=== PATIENT | female | born 1955 | race Caucasian/White ===

== ENCOUNTER 2016-09-23 03:51 | Emergency (ER) | payer OTHER ==
--- NOTE | ~2016-09-23 | ER ---
PATIENT'S NAME: AMARILIS [facility] AGE: 61 Y [address] ROOM: [place] [address] LOCATION: [facility] ADMIT DATE: 09/23/2016 ER/Outpatient Report DISCHARGE DATE: 09/23/2016 FAMILY PHYSICIAN: PHYSICIAN, NO ATTENDING PHYSICIAN: Estefany Richey HISTORY OF PRESENT ILLNESS: A 61-year-old female who presents today with syncopal episode about 30 minutes ago and sustaining a right-sided forehead laceration. The patient states that she had severe abdominal pain, which is consistent with IBS flares and then got into a cold sweat and then blacked out and then had a lot of diarrhea. This happened 30 minutes ago. She has no symptoms at this time. She denies any abdominal pain. No chest pain. No shortness of breath. No nausea, vomiting, or diarrhea. No dizziness. She says she never had chest pain or shortness of breath or palpitations when she passed out, just the severe pain and then a lot of diarrhea and then passing out. Currently has 0/10 pain. She has 0/10 pain of her abdomen. She is complaining of some pain where her laceration is over her right forehead, also has a black eye on the right and hematoma above the left eyebrow. She also has some right-sided neck pain. Denies any numbness or tingling. She walked into the ER. No vision changes. No other complaints. She refuses tetanus update at this time even though it is out of date and she also refuses any pain meds at this time. PAST MEDICAL HISTORY: Includes IBS. SURGICAL HISTORY: Includes rotator cuff repair and hernia repair. SOCIAL HISTORY: She does not smoke or use any drugs. She drinks alcohol occasionally. MEDICATIONS: None. ALLERGIES: PLEASE SEE MED LIST. REVIEW OF SYSTEMS: Reviewed by me and negative with the exception of those discussed in HPI. PHYSICAL EXAMINATION: VITAL SIGNS: She is 5 feet 7 inches. She weighs 57.1 kilos, blood pressure 130/68, heart rate 57, respiratory rate 17, temperature is 95.9 tympanic, and saturating 98% on room air. PATIENT'S NAME: AMARILIS [facility] AGE: 61 Y [address] ROOM: [place] [address] LOCATION: [facility] ADMIT DATE: 09/23/2016 ER/Outpatient Report DISCHARGE DATE: 09/23/2016 FAMILY PHYSICIAN: PHYSICIAN, NO ATTENDING PHYSICIAN: Estefany Richey GENERAL: The patient is not in any acute distress. She is alert and interactive. She is speaking appropriately. HEENT: On her face, she has a 3 cm linear laceration. On her right forehead, she has some bruising under the right eye and also hematoma about 2 cm above the left eyebrow. She does not have any nasal bone tenderness. No other facial tenderness. She has no malocclusion. She has no dental injury. She has no subconjunctival hemorrhage. No other scalp hematomas. NECK: She has no C-spine tenderness. She has some right paraspinal tenderness around right-sided C3-C4 area, but she has full range of motion of the neck. She has no T, L, S spine tenderness. HEART: Regular rate and rhythm. LUNGS: Her lungs sounds are clear. ABDOMEN: Soft, nontender, nondistended. NEURO: She is A and O x4. Strength in bilateral upper extremities 5/5 and lower extremities 5/5, intact sensation in bilateral upper and lower extremities. Grasp and strength intact. Cranial nerves 2 through 12 are intact. No visual acuity deficits or visual field deficits. She tracks appropriately. No nystagmus. EMERGENCY ROOM COURSE: We did an EKG because of the syncopal episode. The patient is convinced that because she passed out because of pain and this diarrhea which has happened before she says, but about 10 years ago. We did an EKG anyway which just shows sinus bradycardia with the heart rate of 57, but no ectopy. No ST elevations or depressions. No prolonged QTc. I then anesthetized the wound using about 5 mL of lidocaine without epi. After appropriate anesthesia had been achieved, I thoroughly cleaned the wound to the best of my ability using about 500 mL of tap water. No debridement was done. Then, I put in 3 simple interrupted sutures. The wound closed appropriately and the patient tolerated the procedure well. I told her that she needs to have these taken out by her primary care doctor in 7 days. Look out for signs of infections. She understands to follow up with her primary care doctor in 7 days. She understands the reasons back to the ER sooner. IMPRESSION: Syncope, forehead laceration. MD NASRIN HOWELL/fernando PATIENT'S NAME: AMARILIS [facility] AGE: 61 Y [address] ROOM: [place] [address] LOCATION: [facility] ADMIT DATE: 09/23/2016 ER/Outpatient Report DISCHARGE DATE: 09/23/2016 FAMILY PHYSICIAN: , BUDDY ATTENDING PHYSICIAN: Estefany Richey /[id number] d: 09/23/16533 t: 09/24/161955, OUTPATIENT REPORT
== END 2016-09-23 04:32 | disposition disaster alternative care site (69) ==
LOC: GACC 03:51
PROC: 0HQ1XZZ Repair Face Skin, External Approach (ICD-10-PCS; principal; 2016-09-23)
DX: S01.81XA Laceration without foreign body of other part of head, initial encounter (principal); S00.83XA Contusion of other part of head, initial encounter; R55 Syncope and collapse; K58.9 Irritable bowel syndrome, unspecified; Z98.890 Other specified postprocedural states; Z88.2 Allergy status to sulfonamides; Z88.5 Allergy status to narcotic agent; X58.XXXA Exposure to other specified factors, initial encounter